=== PATIENT | female | born 1965 | race Caucasian/White ===

== ENCOUNTER 2016-12-26 11:28 | Outpatient (CLI) | payer BC ==
--- NOTE | 2016-12-26 12:58 | DIAGNOSTIC IMAGING REPORT ---
PROCEDURE: MG BILATERAL SCREENING W/CAD INDICATION: SCREENING TECHNIQUE: Bilateral CC and MLO digital views. COMPARISON: Compared to 12/21/2015, 06/04/2013, 01/31/2012 (left mammogram), and 01/24/2012. FINDINGS: Computer-aided detection applied. Moderately dense with a few dystrophic and microcalcifications. No change. IMPRESSION: 1. Negative mammogram RESULT CODE: 1- Negative. A. A negative report should not delay biopsy if a dominant or clinically suspicious mass is present. 10-15% of cancers are not identified by x-ray. B. A negative report may reinforce clinical impression. C. Adenosis and dense breasts may obscure an underlying neoplasm. D. False positive reports average 6-10%. E.. A yearly screening mammogram is recommended. A reminder letter will be scheduled.
== END 2016-12-26 23:00 ==
LOC: MAM SRH 11:28
DX: Z12.31 Encounter for screening mammogram for malignant neoplasm of breast (principal)